=== PATIENT | male | born 2000 | race American Indian/Alaskan Native ===

== ENCOUNTER 2021-08-22 22:54 | Emergency (ER) | payer OTHER ==
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
--- NOTE | 2021-08-23 00:42 | XRay Report ---
RIGHT HIP 2 VIEW(S) INDICATION / CLINICAL INFORMATION: left hip injury COMPARISON: None available. FINDINGS: BONES / JOINT(S): No acute fracture or subluxation. No significant arthritis. SOFT TISSUES: No significant abnormality. ADDITIONAL FINDINGS: None. IMPRESSION: 1. No acute pathology. No significant abnormality. Signer Name: Jeremiah Carrion II, MD Signed: 08/23/2021 12:37 AM Workstation Name: [id number]
--- NOTE | 2021-08-23 00:42 | XRay Report ---
LUMBAR SPINE 2 VIEWS INDICATION / CLINICAL INFORMATION: BACK INJURY. COMPARISON: None available. FINDINGS: VERTEBRAE: No acute fracture. No significant malalignment. DISC SPACES / FACET JOINTS:No significant abnormality. PARASPINAL SOFT TISSUES:No significant abnormality. ADDITIONAL FINDINGS: None. IMPRESSION: 1. No significant degenerative changes, no acute findings. Signer Name: Jeremiah Carrion II, MD Signed: 08/23/2021 12:37 AM Workstation Name: [id number]
[2021-08-23 01:03] VITALS: BP 109/64
== END 2021-08-23 02:10 ==
LOC: ED 22:54
DX: S09.90XA Unspecified injury of head, initial encounter (principal); M54.9 Dorsalgia, unspecified; Y09 Assault by unspecified means; Y93.89 Activity, other specified; Y92.89 Other specified places as the place of occurrence of the external cause; Y99.8 Other external cause status
CPT/HCPCS: 70450; 72100; 99284